=== PATIENT | female | born 1960 | race Caucasian/White ===

== ENCOUNTER 2023-08-28 22:34 | Inpatient (IN) | payer BC ==
[~2023-08-28] VITALS: Ht 170.2 cm; Wt 97.2 kg
[~2023-08-28 22:34] MED LIST: PERCOCET 5/325M1 TAB PO; TAMSULOSIN0.4 MG PO; TORADOL PO; ZOFRAN4 MG/TAB PO
[2023-08-28 22:44] VITALS: BP 139/75
[2023-08-28 23:01] VITALS: BP 132/66
[2023-08-28] MEDS ORDERED: HYDROCHLOROT25 MG PO (23:14)
[2023-08-28] MEDS ORDERED: KETOROLAC TROMETHAMINE 30 MG/ML SDV IV ONE (23:15)
[2023-08-28] MEDS ORDERED: LORazepam 2 MG/ML IV ONE (23:15)
[2023-08-28] MEDS ORDERED: SODIUM CHLORIDE 0.9% 1,000 ML IV ONE (23:15)
[2023-08-28] MEDS ORDERED: LASIX 20 MG TAB20 MG PO (23:15)
[2023-08-28] MEDS ORDERED: [UNRECOGNIZED DRUG - OTHER] (23:16)
[2023-08-28 23:20] LABS: EOS% 2.4 % (0-8); HEMATOCRIT 43.4 % (37.0-47.0); HEMOGLOBIN 14.9 g/dl (12.0-16.0); IMMATURE GRANULOCYTES 0.2 % (0.0-5.0); LYMPH% 24.8 % (15-41); MEAN CELL VOLUME 102.8 fL CALC (80.0-100.0); MEAN CORPUSCULAR HGB 35.3 pG CALC (26.0-32.0); MEAN CORPUSCULAR HGB CONC 34.3 g/dL CAL (32.0-36.0); MONO% 5.5 % (2-13); NEUT# 3.65 thou/uL (2.00-7.15); NEUT% 67.1 % (42-76); RED BLOOD COUNT 4.22 mill/uL (4.20-5.60); RED CELL DISTRI WIDTH 12.8 % (11.5-15.5)
[2023-08-28 23:30] VITALS: BP 130/68
[2023-08-28 23:31] LABS: BILIRUBIN, TOTAL 1.3 mg/dL (0.02-1.3); CREATININE 0.8 mg/dL (0.5-1.0); TOTAL PROTEIN 7.8 g/dL (6.3-8.2)
[2023-08-28 23:52] VITALS: BP 113/60
[2023-08-28] MEDS ORDERED: POTASSIUM CHLORIDE 10 MEQ/TAB PO ONE (23:55)
[2023-08-29] VITALS (11 sets, daily range): BP systolic 106–136; BP diastolic 60–71
[2023-08-29 00:58] LABS: URINE BLOOD DIPSTICK Moderate (NEGATIVE); URINE GLUCOSE - DIPSTICK Negative (NEGATIVE); URINE KETONE Trace mg/dL (NEGATIVE); URINE NITRITE - DIPSTICK Negative (Negative); URINE PROTEIN - DIPSTICK 30 mg/dL (NEG-TRACE)
[2023-08-29 01:27] LABS: URINE COLOR Amber
[2023-08-29 01:28] LABS: URINE EPITHELIAL CELLS FEW EPI/hpf (0-FEW); URINE LEUK ESTERASE Negative (NEGATIVE); URINE RBC 25-50 RBC/hpf (0-5)
[2023-08-29 01:29] LABS: URINE BACTERIA MODERATE hpf; URINE HYALINE CAST RARE lpf (NONE-RARE); URINE MUCUS MODERATE hpf (NONE-FEW)
[2023-08-29] MEDS ORDERED: SODIUM CHLORIDE 0.9% 0 ML IV ONE (03:18)
[2023-08-29] MEDS ORDERED: FAMOTIDINE 10MG/ML 2ML SDV IV ONE (04:03)
[2023-08-29] MEDS ORDERED: SODIUM CHLORIDE 0.9% 100 ML IV ONE (04:05)
[2023-08-29] MEDS ORDERED: ceFAZolin Sodium 2 GM/VIAL SDV ONE (04:05)
[2023-08-29] MEDS ORDERED: ceFAZolin Sodium 2 GM/VIAL SDV IV ONE (04:25)
[2023-08-29] MEDS ORDERED: ONDANSETRON HCl 4 MG/2 ML SDV IV PRN (04:25)
[2023-08-29] MEDS ORDERED: HYDROmorphone HCL 2 MG/AMP IV PRN (04:25)
[2023-08-29] MEDS ORDERED: LACTATED RINGER'S 1,000 ML IV SCH (05:25)
[2023-08-29] MEDS ORDERED: Fluconazole 200 mg Premix 100 ML IV SCH ×2 (06:00→09:00)
[2023-08-29] MEDS ORDERED: PIPERACILLIN Sodium-Tazobactam 3.375 GM in SODIUM CHLORIDE 0.9% 100 ML IV SCH (06:00)
[2023-08-29] MEDS ORDERED: LACTATED RINGER'S 1,000 ML IV ONE (06:27)
[2023-08-29] MEDS ORDERED: SODIUM CHLORIDE 0.9% 1,000 ML IV ONE (06:27)
[2023-08-29] MEDS ORDERED: STERILE WATER FOR IRRIGATION 1,000 ML BTL IR ONE (06:27)
[2023-08-29] MEDS ORDERED: SUCCINYLCHOLINE CHLORIDE 20 MG/ML 10ML VIAL IV ONE (07:52)
[2023-08-29] MEDS ORDERED: ONDANSETRON HCl 4 MG/2 ML SDV IV ONE (07:52)
[2023-08-29] MEDS ORDERED: ROCURONIUM BROMIDE 10 MG/ML 5ML VIAL IV ONE (07:52)
[2023-08-29] MEDS ORDERED: ACETAMINOPHEN 1,000 MG/100 ML VIAL IV ONE (07:52)
[2023-08-29] MEDS ORDERED: PROPOFOL 200 MG/20 ML VIAL IV ONE (07:52)
[2023-08-29] MEDS ORDERED: LACTATED RINGER'S 1,000 ML BAG IV ONE (07:52)
[2023-08-29] MEDS ORDERED: DEXAMETHASONE SODIUM PHOSPHATE PF 10 MG/ML SDV IV ONE (07:52)
[2023-08-29] MEDS ORDERED: MORPHINE SULFATE 4 MG/ML VIAL IV ONE (07:52)
[2023-08-29] MEDS ORDERED: SUGAMMADEX SODIUM 200 MG/2 ML SDV IV ONE (07:52)
[2023-08-29] MEDS ORDERED: LIDOCAINE HCL 2% 2ML SDV IV ONE (07:52)
[2023-08-29 10:16] LABS: HEMATOCRIT 39.5 % (37.0-47.0); HEMOGLOBIN 13.6 g/dl (12.0-16.0); MEAN CELL VOLUME 103.9 fL CALC (80.0-100.0); MEAN CORPUSCULAR HGB 35.8 pG CALC (26.0-32.0); MEAN CORPUSCULAR HGB CONC 34.4 g/dL CAL (32.0-36.0); RED BLOOD COUNT 3.8 mill/uL (4.20-5.60); RED CELL DISTRI WIDTH 12.8 % (11.5-15.5)
[2023-08-29 10:26] LABS: CREATININE 0.6 mg/dL (0.5-1.0); POTASSIUM 3.1 mmol/l (3.5-5.1)
[2023-08-29] MEDS ORDERED: POTASSIUM CHLORIDE 20MEQ 100 ML IV SCH (13:00)
[2023-08-29] MEDS ORDERED: hydrALAZINE HCL 20 MG/ML VIAL(1 ML) IV PRN (14:15)
[2023-08-29] MEDS ORDERED: SODIUM CHLORIDE 0.9% 10 ML SYR IV PRN (18:35)
[2023-08-29] MEDS ORDERED: SODIUM CHLORIDE 0.9% 10 ML SYR IV SCH (22:00)
[2023-08-30] VITALS (9 sets, daily range): BP systolic 121–163; BP diastolic 64–79
[2023-08-30 06:16] LABS: HEMATOCRIT 35.5 % (37.0-47.0); HEMOGLOBIN 12.2 g/dl (12.0-16.0); IMMATURE GRANULOCYTES 0.2 % (0.0-5.0); LYMPH% 11.9 % (15-41); MEAN CELL VOLUME 106.6 fL CALC (80.0-100.0); MEAN CORPUSCULAR HGB 36.6 pG CALC (26.0-32.0); MEAN CORPUSCULAR HGB CONC 34.4 g/dL CAL (32.0-36.0); NEUT# 7.25 thou/uL (2.00-7.15); NEUT% 80.9 % (42-76); RED BLOOD COUNT 3.33 mill/uL (4.20-5.60); RED CELL DISTRI WIDTH 13.1 % (11.5-15.5)
[2023-08-30 06:50] LABS: CREATININE 0.6 mg/dL (0.5-1.0); MAGNESIUM 1.6 mg/dL (1.6-2.3); POTASSIUM 3.7 mmol/l (3.5-5.1)
[2023-08-31] VITALS (11 sets, daily range): BP systolic 145–168; BP diastolic 78–87
[2023-08-31 08:47] LABS: BASO% 0.3 % (0-3); EOS% 1.3 % (0-8); HEMATOCRIT 37.3 % (37.0-47.0); HEMOGLOBIN 12.2 g/dl (12.0-16.0); IMMATURE GRANULOCYTES 0.3 % (0.0-5.0); LYMPH% 17.6 % (15-41); MEAN CELL VOLUME 109.1 fL CALC (80.0-100.0); MEAN CORPUSCULAR HGB 35.7 pG CALC (26.0-32.0); MEAN CORPUSCULAR HGB CONC 32.7 g/dL CAL (32.0-36.0); MONO% 7.5 % (2-13); NEUT# 5.66 thou/uL (2.00-7.15); RED BLOOD COUNT 3.42 mill/uL (4.20-5.60)
[2023-08-31 09:02] LABS: BILIRUBIN, TOTAL 0.9 mg/dL (0.02-1.3); CREATININE 0.6 mg/dL (0.5-1.0); MAGNESIUM 1.6 mg/dL (1.6-2.3); POTASSIUM 3.7 mmol/l (3.5-5.1)
[2023-08-31 09:10] LABS: ALBUMIN 2.7 g/dL (3.2-5.0); TOTAL PROTEIN 5.7 g/dL (6.3-8.2)
[2023-08-31] MEDS ORDERED: FUROSEMIDE 40 MG/4 ML SDV IV SCH (11:30)
[2023-08-31] MEDS ORDERED: Pantoprazole Sodium 40 MG VIAL (Protonix) IV ONE (12:35)
[2023-08-31] MEDS ORDERED: DIATRIZOATE MEGLUMINE & SODIUM 30 ML/BTL BTL PO SCH (14:15)
[2023-09-01] VITALS (11 sets, daily range): BP systolic 139–157; BP diastolic 71–89
[2023-09-01 05:56] LABS: BASO% 0.1 % (0-3); EOS% 2.1 % (0-8); HEMATOCRIT 36.7 % (37.0-47.0); HEMOGLOBIN 12.5 g/dl (12.0-16.0); IMMATURE GRANULOCYTES 0.1 % (0.0-5.0); LYMPH% 16.3 % (15-41); MEAN CELL VOLUME 106.7 fL CALC (80.0-100.0); MEAN CORPUSCULAR HGB 36.3 pG CALC (26.0-32.0); MEAN CORPUSCULAR HGB CONC 34.1 g/dL CAL (32.0-36.0); NEUT# 4.9 thou/uL (2.00-7.15); NEUT% 70.4 % (42-76); RED BLOOD COUNT 3.44 mill/uL (4.20-5.60); RED CELL DISTRI WIDTH 12.6 % (11.5-15.5)
[2023-09-01 06:04] LABS: ALBUMIN 2.5 g/dL (3.2-5.0); BILIRUBIN, TOTAL 1.2 mg/dL (0.02-1.3); CREATININE 0.5 mg/dL (0.5-1.0); MAGNESIUM 1.4 mg/dL (1.6-2.3); POTASSIUM 3.3 mmol/l (3.5-5.1); TOTAL PROTEIN 5.3 g/dL (6.3-8.2)
[2023-09-01] MEDS ORDERED: DEXTROSE 250 ML IV ONE (06:35)
[2023-09-01] MEDS ORDERED: hydrALAZINE HCL 20 MG/ML VIAL(1 ML) IV PRN (09:00)
[2023-09-01] MEDS ORDERED: oxyCODONE 5MG/ ACETAMINOPHEN 325MG TAB PO PRN (09:55)
[2023-09-01] MEDS ORDERED: POTASSIUM CHLORIDE 20MEQ 100 ML IV SCH (10:30)
[2023-09-01] MEDS ORDERED: Pantoprazole Sodium 40 MG VIAL (Protonix) IV SCH (10:30)
[2023-09-01] MEDS ORDERED: FUROSEMIDE 40 MG/4 ML SDV IV ONE (10:30)
[2023-09-01] MEDS ORDERED: hydroCHLOROthiazide 12.5 MG/CAP PO SCH (10:30)
[2023-09-01] MEDS ORDERED: MAGNESIUM SULFATE HEPTAHYDRATE 50 ML IV SCH (11:00)
[2023-09-02] VITALS (9 sets, daily range): BP systolic 124–145; BP diastolic 66–81
[2023-09-02 06:02] LABS: BASO% 0.3 % (0-3); EOS% 6.4 % (0-8); HEMATOCRIT 36.5 % (37.0-47.0); HEMOGLOBIN 12.4 g/dl (12.0-16.0); IMMATURE GRANULOCYTES 0.2 % (0.0-5.0); LYMPH% 21.3 % (15-41); MEAN CELL VOLUME 104.3 fL CALC (80.0-100.0); MEAN CORPUSCULAR HGB 35.4 pG CALC (26.0-32.0); MONO% 13.1 % (2-13); NEUT# 3.59 thou/uL (2.00-7.15); NEUT% 58.7 % (42-76); RED BLOOD COUNT 3.5 mill/uL (4.20-5.60); RED CELL DISTRI WIDTH 12.6 % (11.5-15.5)
[2023-09-02 06:27] LABS: ALBUMIN 2.6 g/dL (3.2-5.0); BILIRUBIN, TOTAL 1.5 mg/dL (0.02-1.3); CREATININE 0.5 mg/dL (0.5-1.0); MAGNESIUM 1.6 mg/dL (1.6-2.3); TOTAL PROTEIN 5.5 g/dL (6.3-8.2)
[2023-09-02 06:40] LABS: POTASSIUM 2.8 mmol/l (3.5-5.1)
[2023-09-02] MEDS ORDERED: POTASSIUM CHLORIDE 20 MEQ/TAB PO SCH (08:30)
[2023-09-02] MEDS ORDERED: FUROSEMIDE 20 MG/TAB PO SCH (10:30)
[2023-09-02] MEDS ORDERED: POTASSIUM CHLORIDE 20MEQ 100 ML IV SCH (12:00)
[2023-09-02] MEDS ORDERED: amLODIPine BESYLATE 5 MG/TAB PO SCH (12:00)
[2023-09-03] VITALS: BP 124/66
[2023-09-03 04:00] VITALS: BP 125/70
[2023-09-03 04:13] VITALS: BP 125/70
[2023-09-03 06:56] LABS: BASO% 0.3 % (0-3); EOS% 6.8 % (0-8); HEMATOCRIT 35.6 % (37.0-47.0); HEMOGLOBIN 12.2 g/dl (12.0-16.0); IMMATURE GRANULOCYTES 0.3 % (0.0-5.0); LYMPH% 21.2 % (15-41); MEAN CELL VOLUME 104.4 fL CALC (80.0-100.0); MEAN CORPUSCULAR HGB 35.8 pG CALC (26.0-32.0); MEAN CORPUSCULAR HGB CONC 34.3 g/dL CAL (32.0-36.0); MONO% 10.7 % (2-13); NEUT# 3.74 thou/uL (2.00-7.15); NEUT% 60.7 % (42-76); RED BLOOD COUNT 3.41 mill/uL (4.20-5.60); RED CELL DISTRI WIDTH 12.6 % (11.5-15.5)
[2023-09-03 07:09] LABS: ALBUMIN 2.6 g/dL (3.2-5.0); BILIRUBIN, TOTAL 1.1 mg/dL (0.02-1.3); CREATININE 0.6 mg/dL (0.5-1.0); MAGNESIUM 1.6 mg/dL (1.6-2.3); POTASSIUM 3.3 mmol/l (3.5-5.1); TOTAL PROTEIN 5.4 g/dL (6.3-8.2)
[2023-09-03 07:13] VITALS: BP 116/68
[2023-09-03] MEDS ORDERED: POTASSIUM CHLORIDE 20 MEQ/TAB PO SCH (09:00)
[2023-09-03 10:36] VITALS: BP 142/77
[2023-09-03] MEDS ORDERED: PERCOCET 5/325M1 TAB PO (11:35)
[2023-09-03] MEDS ORDERED: OMEPRAZOLE20 MG PO (11:40)
[2023-09-03] MEDS ORDERED: CLARITHROMYCIN500 MG PO (11:40)
[2023-09-03] MEDS ORDERED: AMOXICILLIN500 M2 PO (11:40)
[2023-09-03] MEDS ORDERED: K-TAB20 MEQ PO (12:01)
== END 2023-09-03 14:59 | disposition home or self-care (01) | DRG 328 ==
LOC: ED 22:34 → ED-I 08-29 02:12 → ED 08-29 02:18 → MS2 08-29 02:19
PROVIDERS: Family Medicine; Nurse Practitioner Family; Student in an Organized Health Care Education/Training Program; ADMIT Surgery; ATTEND Surgery
PROC: 0DU607Z Supplement Stomach with Autologous Tissue Substitute, Open Approach (ICD-10-PCS; principal; 2023-08-29)
PROC: 05HM33Z Insertion of Infusion Device into Right Internal Jugular Vein, Percutaneous Approach (ICD-10-PCS; 2023-08-29)
DX: K25.5 Chronic or unspecified gastric ulcer with perforation (principal); E87.6 Hypokalemia; I10 Essential (primary) hypertension; N20.0 Calculus of kidney; I89.0 Lymphedema, not elsewhere classified; T50.3X6A Underdosing of electrolytic, caloric and water-balance agents, initial encounter; Z91.128 Patient's intentional underdosing of medication regimen for other reason; Z87.442 Personal history of urinary calculi; Z98.84 Bariatric surgery status; Z90.49 Acquired absence of other specified parts of digestive tract; Z90.710 Acquired absence of both cervix and uterus; Z20.822 Contact with and (suspected) exposure to COVID-19
CPT/HCPCS: J0131; J0690; J1100; J2060; J3475; S0164

== ENCOUNTER 2023-12-20 17:11 | Emergency (ER) | payer BC ==
[~2023-12-20] VITALS: Ht 170.2 cm; Wt 91.6 kg
[~2023-12-20 17:11] MED LIST changes: +ALDACTONE50 MG PO; +AMOX/K CLAV875 M1 PO; +AMOXICILLIN500 M2 PO; +CLARITHROMYCIN500 MG PO; +HYDROCHLOROT25 MG PO; +K-TAB20 MEQ PO; +LASIX 20 MG TAB20 MG PO; +MYRBETRIQ25 MG PO; +OMEPRAZOLE20 MG PO; +[UNRECOGNIZED DRUG - OTHER]
[2023-12-20] MEDS ORDERED: DEXAMETHASONE SOD. PHOSPHATE 10 MG/ML VIAL IM ONE (17:20)
[2023-12-20] MEDS ORDERED: MEDDOSEPAK PO (17:35)
[2023-12-20] MEDS ORDERED: KEFLEX500 MG PO (17:35)
[2023-12-20 17:40] VITALS: BP 152/75
[2023-12-26] MEDS ORDERED: PROBIOTIC DAILY1 CAP PO (09:00)
[2023-12-26] MEDS ORDERED: CRANBERRY CONC500 MG PO (09:02)
[2023-12-26] MEDS ORDERED: NALTREXONE HYDR50 MG PO (09:05)
[2023-12-26] MEDS ORDERED: TRAZODONE50 MG PO (09:06)
[2023-12-26] MEDS ORDERED: CITRACAL CALCIU1 TAB PO (09:07)
[2023-12-26] MEDS ORDERED: K2 PLUS D31 TAB PO (09:09)
[2023-12-26] MEDS ORDERED: FLINTSTONE PO (09:10)
[2023-12-26] MEDS ORDERED: EQL BIOTIN5000 MCG PO (09:11)
== END 2023-12-20 17:54 | disposition home or self-care (01) | DRG 603 ==
LOC: ED 17:11
DX: L03.116 Cellulitis of left lower limb (principal); L03.115 Cellulitis of right lower limb; T63.421A Toxic effect of venom of ants, accidental (unintentional), initial encounter; I10 Essential (primary) hypertension; I89.0 Lymphedema, not elsewhere classified